=== PATIENT | female | born 1935 | race Caucasian/White ===

== ENCOUNTER → 2017-08-23 | Day surgery (SDC) | payer OTHER ==
[~2017-08-23] VITALS: Ht 157.5 cm; Wt 92.3 kg
[~2017-08-23] MED LIST: ACETAMINOPHEN 1000 MG/100 ML 100 ML IV ONE; CHLORHEXIDINE GLUCONATE 2 % 1 PACK (2 CLOTHS) TOPICAL PRN; DILT240C44 PO; DO NOT ADM ANY ANTICOAGULANT DRUGS PRN; ECASA81 PO; FAMOTIDINE 20 MG/2 ML VIAL ONE; FURO40TA PO; INSULIN HUMAN REGULAR 1,000 UNITS/10 ML VIAL SQ PRN; KETOROLAC TROMETHAMINE 30 MG/ML (IVP) VIAL IV PUSH PRN; LACTATED RINGER'S 1000 ML IV PRN; LEVA500T33 PO; LIDOCAINE 1%/EPINEPHrine 1:100,000 SOLN 30 ML VIAL ONE; LIDOCAINE HCL 1% PF 5 ML SYRINGE OTHER ONE; MECL-62 PO; METO50TA PO; METOPROLOL TARTRATE 25 MG TAB PO PRN; POTA10TA2 PO; POVIDONE IODINE 5% (ANTISEPSIS KIT) 4 APPLICATIONS EACH NARE PRN; PRAM1TAB PO; PROPOFOL 200 MG/20 ML AMP IV ONE; SIMV10TA PO; SODIUM CHLORID 0.9% 500 ML IV PRN; WARF-58 PO; WARF4TAB51 PO
[2017-08-23 12:08] LABS: INTERNATIONAL NORMALIZED RATIO 1.1 RATIO; PROTHROMBIN TIME - PATIENT 11.1 SEC (9.8-11.6)
--- NOTE | 2017-08-23 16:16 | MP ---
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 POSTOPERATIVE DIAGNOSIS: Postmenopausal bleeding, atypical glandular cell Pap smear, also with features suggestive of high-grade squamous intraepithelial lesion, imaging suggesting thickened endometrial stripe. PROCEDURE: Examination under anesthesia, fractional dilation and curettage, cervix biopsies. 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 ANESTHESIA: Laryngeal mask. ESTIMATED BLOOD LOSS: Less than 20 mL. HISTORY: An 82-year-old female, postmenopausal bleeding, on blood thinners. Pap smear showed atypical glandular cells as well as changes suggestive of high-grade squamous abnormalities and imaging that showed thickened endometrial stripe. She was seen in our office and counseled regarding need for diagnostic information. She was seen again in the preop holding area where the finding and plan were again discussed. Questions were asked and answered. She expressed good understanding and agreed to proceed. FINDINGS: On exam under anesthesia, there was no appreciably enlarged inguinal lymph nodes. External genitalia without mass or lesions. She has a fairly prominent rectocele, mild cystocele. The cervix is small, circumferentially smooth. There is no obvious parametrial mass or nodularity. The cervix and uterus have some mobility. The uterus itself is small, only approximately 6-6.5 cm. No overt adnexal mass could be appreciated. After application of dilute acetic acid, no overt acetowhite epithelial changes were noted. No obvious vascular changes. There was a small polypoid tissue extending through the endocervical canal. Endocervical curetting revealed a scant amount of tissue. Endometrial curetting revealed areas that were smooth and yielded polypoid tissue, especially in the left fundal region of the uterus and left lateral area of the uterus and curetting and polyp forceps yielded several polypoid fragments of tissue. At completion of the procedure, the uterine surfaces were gritty. However, there remained some smooth sensation along the left uterine sidewall. Further curetting and polyp forceps did not remove any significant additional tissue. DESCRIPTION OF PROCEDURE: She was taken to the operating room, placed in the dorsal lithotomy position. After laryngeal mask anesthesia was administered, timeout was undertaken. She was identified by sight recognition and hospital ID bracelet and the proposed procedure was reviewed and confirmed. She was carefully positioned in Trendelenburg and lithotomy position. An exam under anesthesia was performed with findings as described above. She was prepped and draped in sterile fashion. In and out catheterization of the bladder was performed. Cervix was grasped. Endocervical curetting was performed with findings as described above. Next, the cervix was dilated. The uterine cavity was again sounded, and the curetting was performed circumferentially, multiple passes. Tissue was combined, labeled as endometrial curetting, with findings as described above. Dilute acetic acid was applied to the cervix. No overt acetowhite changes or vascular changes on visual inspection. Biopsies were taken from the cervix at the 12 o'clock and 6 o'clock positions given the possible high-grade changes on Pap smear. These sites were rendered hemostatic with Monsel's solution. All sites were hemostatic. Preliminary and final counts were correct. Pelvic exam confirmed there were no remaining foreign objects in the vagina. She was returned to dorsal supine position and pending reversal of anesthesia when I left the operating room to precede her to the postanesthesia care unit. MD ELSY Law/RE , 03:29 PM , 04:15 PM
[2017-08-23 17:02] VITALS: BP 119/75; PULSE 86; RESP 18; TEMP 97.2; O2SAT 96
== END | disposition home or self-care (01) ==
LOC: HSDC 11:03
PROVIDERS: ATTEND Obstetrics & Gynecology Gynecologic Oncology
DX: N95.0 Postmenopausal bleeding (principal); R93.8 Abnormal findings on diagnostic imaging of other specified body structures; I10 Essential (primary) hypertension; I48.91 Unspecified atrial fibrillation
CPT/HCPCS: 00940; 58120; 85610; 85730; 86850; 86900; 86901; 88305; J0131; J1885; J3010